=== PATIENT | male | born 1985 | race Caucasian/White ===

== ENCOUNTER 2020-12-12 21:04 | Inpatient (IN) | payer SELFPAY ==
[~2020-12-12 21:04] MED LIST: Iopamidol-370 76% 500 ML 1 ML ONE
[2020-12-12 22:24] LABS: #Eosinphils 0.1 thou/uL (0.0-0.7); #Lymphocytes 0.8 thou/uL (1.20-3.40); #Monocytes 0.5 thou/uL (0.11-0.59); #Neutrophils 10.6 thou/uL (1.40-6.50); %Basophils 0.2 % (0.0-1.0); %Eosinophils 0.5 % (0.0-10.0); %Lymphocytes 6.3 % (21.0-51.0); Hemoglobin 15.1 g/dL (14.0-18.0); Mean Corpuscular HGB CONC 30.9 g/dL (32.0-36.0); Mean Corpuscular Hemoglobin 29.4 pg (27.0-31.0); Mean Corpuscular Volume 94.9 fL (78.0-98.0); Mean Platelet Volume 7.6 fL (7.4-10.4); Platelet Count 259 thou/uL (130-400); RBC Distribution Width 11.6 % (11.5-14.5); Red Blood Cell (RBC) Count 5.16 mill/uL (4.70-6.10); White Blood Cell (WBC) Count 11.9 thou/uL (4.8-10.8)
[2020-12-12] MEDS ORDERED: Morphine 4 MG/ML VIAL ONE (22:27)
[2020-12-12 23:11] LABS: ALT (SGPT) 159 U/L (8-55); Albumin 4.1 g/dL (3.5-5.0); Alkaline Phosphatase 79 U/L (40-110); Anion Gap 14 mmol/L (10-20); BUN (Urea Nitrogen) 8 mg/dL (8.9-20.6); Bilirubin, Total 0.3 mg/dL (0.2-1.2); Calc. Creatinine Clearance 0 mL/min (70-130); Calcium 9.5 mg/dL (7.8-10.44); Carbon Dioxide 26 mmol/L (22-29); Chloride 104 mmol/L (98-107); Globulin 3.3 g/dL (2.4-3.5); Glucose 116 mg/dL (70-105); Lipase 133 U/L (8-78); Potassium 3.9 mmol/L (3.5-5.1); Protein, Total 7.4 g/dL (6.0-8.3); Sodium 140 mmol/L (136-145)
[2020-12-12 23:40] LABS: AST (SGOT) 125 U/L (5-34)
[2020-12-13 00:33] LABS: Cardiac Risk 1.8 (Less than 4.5)
[2020-12-13] MEDS ORDERED: Morphine 4 MG/ML VIAL ONE ×3 (02:25→11:46)
[2020-12-13] MEDS: Morphine 4 MG/ML VIAL SLOW IVP PRN ×6 (02:31→23:25)
[2020-12-13 09:49] LABS: SARS-CoV-2 NAA Rapid Test Not Detected (NotDetected)
[2020-12-13] MEDS ORDERED: Acetaminophen 325 MG TAB PO PRN (10:14)
[2020-12-13] MEDS ORDERED: Ondansetron PF 4 MG/2 ML Vial IVP PRN (10:14)
[2020-12-13] MEDS: Sodium Chloride 0.9% 1,000 ML IV SCH ×3 (11:43→19:36)
[2020-12-13 13:49] VITALS: BMI 24.3
[2020-12-14] MEDS: Sodium Chloride 0.9% 1,000 ML IV SCH ×6 (00:20→20:22)
[2020-12-14] MEDS: Morphine 4 MG/ML VIAL SLOW IVP PRN ×5 (03:53→20:23)
[2020-12-14 07:36] LABS: #Eosinphils 0.1 thou/uL (0.0-0.7); #Lymphocytes 1.4 thou/uL (1.20-3.40); #Monocytes 0.6 thou/uL (0.11-0.59); #Neutrophils 7.1 thou/uL (1.40-6.50); %Basophils 0.3 % (0.0-1.0); %Eosinophils 1.4 % (0.0-10.0); %Lymphocytes 14.6 % (21.0-51.0); %Monocytes 6.6 % (0.0-10.0); %Neutrophils 77.1 % (42.0-75.0); Hemoglobin 16.3 g/dL (14.0-18.0); Mean Corpuscular HGB CONC 32.8 g/dL (32.0-36.0); Mean Corpuscular Hemoglobin 31.5 pg (27.0-31.0); Mean Platelet Volume 8.3 fL (7.4-10.4); Platelet Count 253 thou/uL (130-400); RBC Distribution Width 11.6 % (11.5-14.5); Red Blood Cell (RBC) Count 5.18 mill/uL (4.70-6.10); White Blood Cell (WBC) Count 9.2 thou/uL (4.8-10.8)
[2020-12-14 07:57] LABS: Anion Gap 13 mmol/L (10-20); BUN (Urea Nitrogen) 4 mg/dL (8.9-20.6); Calc. Creatinine Clearance 154 mL/min (70-130); Calcium 9.4 mg/dL (7.8-10.44); Carbon Dioxide 24 mmol/L (22-29); Chloride 103 mmol/L (98-107); Glucose 121 mg/dL (70-105); Potassium 4.2 mmol/L (3.5-5.1); Sodium 136 mmol/L (136-145)
[2020-12-14] MEDS: Rivaroxaban 10 MG TAB PO SCH (08:15)
[2020-12-14] MEDS ORDERED: Enoxaparin Sodium 40 MG/0.4 ML SYRINGE SC SCH (09:00)
[2020-12-15] MEDS: Morphine 4 MG/ML VIAL SLOW IVP PRN ×5 (00:59→16:59)
[2020-12-15] MEDS: Sodium Chloride 0.9% 1,000 ML IV SCH ×5 (01:30→16:58)
[2020-12-15] MEDS: Rivaroxaban 10 MG TAB PO SCH (08:43)
[2020-12-15 11:47] VITALS: TEMP 98.6
[2020-12-15 16:08] VITALS: BP 125/86
== END 2020-12-15 18:45 | disposition home or self-care (01) | DRG 439 ==
LOC: ERS 21:04 → ERHOLD 12-13 00:25 → T4-A 12-13 13:17 → OBSVTOIN 12-14 16:30
PROVIDERS: ADMIT Internal Medicine; ATTEND Internal Medicine
DX: K85.90 Acute pancreatitis without necrosis or infection, unspecified (principal); I82.890 Acute embolism and thrombosis of other specified veins
CPT/HCPCS: 36415; 36416; 74177; 76705; 80048; 80053; 80061; 83690; 84478; 85025; 87635; 93005; 96361; 96374; 96376; G0378; J2270; Q9967; U0002; U0003; U0005